=== PATIENT | female | born 1995 | race Hispanic/Latino ===

== ENCOUNTER 2018-01-13 23:29 | Emergency (ER) | payer MEDICAID ==
[2018-01-13 23:51] LABS: APPEARANCE,URINE Clear (CLEAR); BILIRUBIN,URINE Negative (NEGATIVE); COLOR,URINE Yellow (YELLOW); GLUCOSE, URINE (UA) Negative (NEGATIVE); KETONES,URINE Negative (NEGATIVE); LEUKOCYTE ESTERASE ,URINE Trace (NEGATIVE); NITRATE,URINE Negative (NEGATIVE); OCCULT BLOOD,URINE Large (NEGATIVE); PROTEIN,URINE Negative (NEGATIVE); UROBILINOGEN,URINE 0.2 mg/dL (0.2-1.0)
[2018-01-13 23:58] LABS: BACTERIA,URINE Rare /HPF (None Seen)
[2018-01-13 23:59] LABS: MUCUS,URINE Few LPF (None Seen); SQUAMOUS EPITHELIAL CELL,UR Few /HPF (0-2)
[2018-01-14] MEDS ORDERED: ONDANSETRON HCL 4 MG/2 ML VIAL ONE (00:11)
[2018-01-14] MEDS ORDERED: IBUPROFEN 200 MG TAB ONE (00:12)
[2018-01-14] MEDS ORDERED: IBUPROFEN 400 MG TABLET ONE (00:12)
[2018-01-14 00:16] LABS: BASOPHILS % (AUTO) 0.5 % (0.0-5.0); EOSINOPHILS % (AUTO) 0.1 % (0.0-8.0); HEMATOCRIT 37.7 % (36-48); LYMPHOCYTES % (AUTO) 7.3 % (21.0-51.0); MEAN CORPUSCULAR HEMOGLOBIN 32.2 pg (27.0-33.0); MEAN CORPUSCULAR HGB CONC 34.1 g/dL (32.0-36.0); MEAN CORPUSCULAR VOLUME 94.2 fL (79-99); NEUTROPHILS % (AUTO) 89.1 % (40.0-77.0); PLATELET COUNT (AUTO) 264 K/uL (130-400); RED CELL DISTRIBUTION WIDTH 13.9 % (11.0-15.5); WHITE BLOOD COUNT (AUTO) 13.5 K/uL (4.8-10.8)
[2018-01-14 00:19] LABS: CARBON DIOXIDE 22 mmol/L (21-32); CHLORIDE 100 mmol/L (101-111); CREATININE 0.9 mg/dL (0.5-1.5); GLOMERULAR FILTR. RATE CALC 83 mL/min (>60); GLUCOSE,RANDOM 118 mg/dL (70-105); POTASSIUM 3.7 mmol/L (3.5-5.1); SODIUM SERUM 134 mmol/L (136-145); UREA NITROGEN, BLOOD 16 mg/dL (7-18)
[2018-01-14] MEDS ORDERED: SODIUM CHLORIDE 0.9% 1000ML 2,000 ML IV ONE (00:19)
[2018-01-14 00:30] LABS: ALANINE AMINOTRANSFERASE 30 U/L (12-78); ALBUMIN 3.4 g/dL (3.5-5.0); ASPARTATE AMINOTRANSFERASE 25 U/L (10-37); BILIRUBIN,TOTAL 0.2 mg/dL (0.2-1.0); CREATINE KINASE, TOTAL 86 U/L (21-232); MYOGLOBIN 23 ng/mL (10-92); TOTAL PROTEIN, SERUM 8.4 g/dL (6.0-8.3); TROPONIN I < 0.04 ng/mL (0.00-0.06)
[2018-01-14 00:34] LABS: PARTIAL THROMBOPLASTIN TIME 26.9 SEC (26.3-35.5); PROTHROMBIN TIME 10.5 SEC (9.6-11.6)
[2018-01-14] MEDS ORDERED: CEFTRIAXONE SODIUM 2 GM VIAL ONE (00:41)
[2018-01-14] MEDS ORDERED: SODIUM CHLORIDE 0.9% 100 ML IV ONE (00:41)
[2018-01-14] MEDS ORDERED: IBUPROFEN 600 MG TABLET ONE (00:43)
[2018-01-14] MEDS ORDERED: ONDANSETRON ODT 4 MG TAB ONE (01:38)
== END 2018-01-14 02:05 | disposition home or self-care (01) ==
LOC: EDH 23:29
DX: K52.9 Noninfective gastroenteritis and colitis, unspecified (principal); E86.0 Dehydration; Z98.890 Other specified postprocedural states
CPT/HCPCS: 36415 ×2; 71045; 74176; 80053; 81001; 82550; 83605; 83874; 84484; 85025; 85610; 85730; 87040 ×2; 87088; 93005; 96361; 96374; 96375; 99285; J0696; J2405; J7030

== ENCOUNTER 2018-07-10 08:33 | Inpatient (IN) | payer MEDICAID ==
[~2018-07-10] VITALS: Ht 142.2 cm; Wt 87.5 kg
[2018-07-10] MEDS ORDERED: ONDANSETRON HCL 4 MG/2 ML VIAL ONE (08:47)
[2018-07-10 09:18] LABS: BASOPHILS % (AUTO) 0.5 % (0.0-5.0); EOSINOPHILS % (AUTO) 0.4 % (0.0-8.0); HEMATOCRIT 39.3 % (36-48); LYMPHOCYTES % (AUTO) 6.6 % (21.0-51.0); MEAN CORPUSCULAR HEMOGLOBIN 31.4 pg (27.0-33.0); MEAN CORPUSCULAR HGB CONC 33.9 g/dL (32.0-36.0); MEAN CORPUSCULAR VOLUME 92.6 fL (79-99); NEUTROPHILS % (AUTO) 89.5 % (40.0-77.0); PLATELET COUNT (AUTO) 228 K/uL (130-400); RED BLOOD CELL COUNT(AUTO) 4.24 MIL/uL (4.00-5.50); WHITE BLOOD COUNT (AUTO) 6.9 K/uL (4.8-10.8)
[2018-07-10 09:19] LABS: APPEARANCE,URINE Clear (CLEAR); BILIRUBIN,URINE Negative (NEGATIVE); COLOR,URINE Yellow (YELLOW); GLUCOSE, URINE (UA) Negative (NEGATIVE); HCG,QUAL RESULT NEGATIVE (NEGATIVE); KETONES,URINE Negative (NEGATIVE); LEUKOCYTE ESTERASE ,URINE Negative (NEGATIVE); NITRATE,URINE Negative (NEGATIVE); OCCULT BLOOD,URINE Negative (NEGATIVE); PH,URINE 5.5 (5.0-8.0); PROTEIN,URINE Negative (NEGATIVE); UROBILINOGEN,URINE 0.2 mg/dL (0.2-1.0)
[2018-07-10] MEDS ORDERED: KETOROLAC TROMETHAMINE 30MG/ML ONE ×2 (09:22→19:14)
[2018-07-10 09:30] LABS: POTASSIUM 4.1 mmol/L (3.5-5.1)
[2018-07-10 09:33] LABS: ALBUMIN 3.3 g/dL (3.5-5.0); BILIRUBIN,TOTAL 0.2 mg/dL (0.2-1.0)
[2018-07-10] MEDS ORDERED: IOHEXOL 350 MG/ML 100ML INFUS..BTL IV ONE (09:33)
[2018-07-10] MEDS ORDERED: LEVOFLOXACIN 750 MG/D5W 150 ML 150 ML ONE (11:07)
[2018-07-10 12:45] VITALS: BP 122/69
[2018-07-10] MEDS ORDERED: ONDANSETRON HCL 4 MG/2 ML VIAL IVP PRN (12:45)
[2018-07-10 16:00] VITALS: BP 118/56
[2018-07-10 19:55] VITALS: BP 145/79
[2018-07-10] MEDS: KETOROLAC TROMETHAMINE 30MG/ML IV SCH (20:38)
[2018-07-10] MEDS: NAPROXEN 250 MG TAB PO SCH (20:56)
[2018-07-10 22:23] LABS: RAPID GROUP A STREP NEGATIVE (NEGATIVE)
[2018-07-10] MEDS: SODIUM CHLORIDE 0.9% 1000ML 1,000 ML IV SCH (22:40)
[2018-07-10 23:20] VITALS: BP 126/51
[2018-07-11] MEDS: KETOROLAC TROMETHAMINE 30MG/ML IV PRN ×2 (03:07→13:39)
[2018-07-11 05:01] LABS: HEMATOCRIT 35.9 % (36-48); MEAN CORPUSCULAR HEMOGLOBIN 31.5 pg (27.0-33.0); MEAN CORPUSCULAR HGB CONC 34.2 g/dL (32.0-36.0); MEAN CORPUSCULAR VOLUME 91.9 fL (79-99); NUCLEATED RED BLOOD CELLS 0.1 % (0.0-0.19); PLATELET COUNT (AUTO) 198 K/uL (130-400); RED CELL DISTRIBUTION WIDTH 14.4 % (11.0-15.5); WHITE BLOOD COUNT (AUTO) 4.1 K/uL (4.8-10.8)
[2018-07-11 05:18] LABS: POTASSIUM 3.7 mmol/L (3.5-5.1)
[2018-07-11 05:19] LABS: CREATININE 0.8 mg/dL (0.5-1.5)
[2018-07-11 08:00] VITALS: BP 126/60
[2018-07-11] MEDS: IPRATROPIUM/ALBUTEROL SULFATE 3 ML SOLUTION IH SCH ×4 (08:00→23:51)
--- NOTE | 2018-07-11 08:04 | NUR ---
patient w/ dry cough, no nebs. notified WAIST PLEATER order entered. will check v/s.
[2018-07-11] MEDS ORDERED: PANTOPRAZOLE 40 MG/VIAL IVP SCH (09:00)
[2018-07-11] MEDS ORDERED: LACTULOSE 20 GM/30 ML UDCUP PO PRN (09:15)
[2018-07-11] MEDS ORDERED: MORPHINE SULFATE 2 MG/ML 1ML SYG ONE (09:26)
[2018-07-11] MEDS ORDERED: MORPHINE SULFATE 2 MG/ML 1ML SYG IVP PRN (09:30)
--- NOTE | 2018-07-11 09:30 | NUR ---
DYSPHAGIA EVAL COMPLETED. -S/S OF ASPIRATION. RECOMMEND CONTINUED CLEAR LIQUIDS DIET. PATIENT INFORMATION" Pt IS A 22 YEAR OLD FEMALE REFERRED FOR A BEDSIDE DYSPHAGIA EVALUATION SECONDARY TO Pt'S FAMILY STATING THAT Pt HAS TROUBLE SWALLOWING. Pt'S PARENTS AT BEDSIDE SERVED PRIMARY INFORMANTS FOR MEDICAL AND SOCIAL HISTORY. THEY STATE Pt IS NOT ABLE TO SWALLOW ANYTHING AT THIS TIME SECONDARY TO ABDOMINAL PAIN. Pt HAS NOT BEEN EATING WELL SINCE WEDNESDAY. Pt CURRENTLY ADMITTED SECONDARY TO RIGHT LOWER LOBE PNEUMONIA, ABDOMINAL PAIN, COLITIS, AND PHARYNGITIS. Pt SCREAMING IN PAIN AT THE TIME OF THE EVALUATION AND REFUSING P.O. Pt PARTICIPATED IN LIMITED TRIALS OF THIN LIQUIDS ONLY SECONDARY TO COMPLAINS OF SEVERE PAIN IN ABDOMEN. NURSE ANIKA NOTIFIED AND ABLE TO PROVIDE PAIN MEDICATION. EVALUATION: PT WITH NO OVERT S/S OF ASPIRATION DURING THIN LIQUID TRIALS. Pt DID NOT PRESENT WITH COUGHING, THROAT CLEARING OR WET VOCAL QUALITY. Pt WITH ADEQUATE LABIAL SEAL AND GOOD INTAKE FROM CUP. NO SOLIDS PRESENTED SECONDARY TO SEVERE PAIN AND P.O. REFUSAL AT THIS TIME. RECOMMENDATIONS: 1. CONTINUE CLEAT LIQUID DIET. 2. RE-EVALUATION IF WARRANTED WHEN Pt'S PAIN IS CONTROLLED. G-CODES SWALLOWING: [id number] Addendum: 07/11/18 at 1312 by SHANA FINNEY, [facility] Amended: Links added.
[2018-07-11] MEDS: NAPROXEN 250 MG TAB PO SCH ×2 (09:33→20:53)
[2018-07-11] MEDS: SODIUM CHLORIDE 0.9% 1000ML 1,000 ML IV SCH ×3 (09:34→20:53)
[2018-07-11] MEDS: LEVOFLOXACIN 750 MG/D5W 150 ML 150 ML IV SCH (09:34)
[2018-07-11] MEDS ORDERED: LACTULOSE 20 GM/30 ML UDCUP ONE (09:38)
[2018-07-11 11:00] VITALS: BP 130/70
--- NOTE | 2018-07-11 12:05 | NUR ---
Pt's mother at nurse's station, c/o her daughter's continued abd pain, upset that abd us had not yet been done despite having been ordered at 0800 today. Mother stated she did not want pt to receive more pain medication, wants her to have the AB US. She also stated, "So are they just going to let her ?" and "What are they going to wait until her intestines pop?" Attempted to call ultrasound department, no answer. Spoke with technical account representative who informed nurse that US tech was out to lunch. Notified NEMO Navarro NP of family c/o. He entered orders for ativan and changed US orders to stat. Notified nail technician teacher of new stat status.
[2018-07-11] MEDS ORDERED: LORAZEPAM 2 MG/ML 1 ML VIAL IVP SCH (12:30)
--- NOTE | 2018-07-11 12:30 | NUR ---
Entered room to notify pt/family of new orders, pt's mother had phone camera on, was videotaping charge nurse. Explained to her that [employer] had been notified and was on his way. Notified MS Director Gigi of video taping in progress. He visited room to speak with family.
--- NOTE | 2018-07-11 12:35 | NUR ---
PATIENT ANXIOUS, SCREAMING, RESTLESS, BILINGUAL ADMINISTRATIVE ASSISTANT PAGED ORDERS ENTERED BY CHARGE NURSE; US STAT OF THE ABD, AND ATIVAN. OFFERED PAIN MEDICATION OR FOR NAUSEA AND PARENTS OF PATIENT REFUSED THEY STATE IT IS NOT THE PAIN OR THE NAUSEA THEY'RE WORRIED BUT IF THERE IS ANY PERFORATION IN THE ABD. US TECHS PAGED ABOUT THE ORDER CHARGE NURSE SPOKE WITH ROBER STATE WILL LET THEM KNOW. PATIENT SCREAMING AND YELLING. FATHERS AND MOTHER STATES THEY WILL VIDEO TAPE AND CALL [facility] BECAUSE THIS IS NO WAY TO TREAT A PATIENT. WILL ASSESS FOR PAIN AND NAUSEA MANAGEMENT IN 15-20MIN. CHARGE NURSE AND DIRECTOR AWARE OF THE SITUATION.
[2018-07-11] MEDS: NYSTATIN 100000 UNIT/ML 5ML UDCUP PO SCH ×3 (13:00→20:54)
--- NOTE | 2018-07-11 14:28 | NUR ---
STOOL O/B POSITIVE, SPOKE W/ ELIZABETH FROM DR. RICKS OFFICE STATES WILL CONVEY THE MESSAGE.
--- NOTE | 2018-07-11 14:59 | NUR ---
PER PATIENT'S MOTHER SHE STATES WHEN PATIENT WAS IN THE RESTROOM SHE SEEMED LIKE SHE WAS PASSING OUT FROM THE PAIN, BUT NEVER LOST CONSCIOUS, CEASAR MULLEN HAS ORDERED 2DECHO WHICH IS STILL PENDING AT THIS TIME.
[2018-07-11 16:00] VITALS: BP 120/68
[2018-07-11] MEDS: METRONIDAZOLE 500MG/100ML BAG 100 ML IV SCH ×2 (18:02→20:53)
[2018-07-11] MEDS: KETOROLAC TROMETHAMINE 30MG/ML IV SCH (19:00)
[2018-07-11 19:26] VITALS: BP 137/69
[2018-07-11 23:07] VITALS: BP 116/74
[2018-07-12] MEDS: MORPHINE SULFATE 2 MG/ML 1ML SYG IVP PRN ×2 (01:11→21:26)
[2018-07-12 03:57] VITALS: BP 107/48
[2018-07-12 04:58] LABS: BASOPHILS % (AUTO) 1.2 % (0.0-5.0); EOSINOPHILS % (AUTO) 0.1 % (0.0-8.0); LYMPHOCYTES % (AUTO) 25.9 % (21.0-51.0); MEAN CORPUSCULAR HEMOGLOBIN 30.7 pg (27.0-33.0); MEAN CORPUSCULAR HGB CONC 33.6 g/dL (32.0-36.0); MEAN CORPUSCULAR VOLUME 91.2 fL (79-99); MONOCYTES % (AUTO) 9.6 % (3.0-13.0); NEUTROPHILS % (AUTO) 63.2 % (40.0-77.0); PLATELET COUNT (AUTO) 207 K/uL (130-400); RED BLOOD CELL COUNT(AUTO) 3.72 MIL/uL (4.00-5.50); RED CELL DISTRIBUTION WIDTH 14.3 % (11.0-15.5); WHITE BLOOD COUNT (AUTO) 2.8 K/uL (4.8-10.8)
[2018-07-12 05:28] LABS: CREATININE 0.7 mg/dL (0.5-1.5); POTASSIUM 3.4 mmol/L (3.5-5.1)
[2018-07-12 05:33] LABS: BAND NEUTROPHILS % (MANUAL) 2 % (0-2); LYMPHOCYTES % (MANUAL) 28 % (22-44); MAN.DIFF COMMENT-IMPRESSION MANUAL DIFFERENTIAL; MONOCYTES % (MANUAL) 6 % (2-9); PLATELET MORPHOLOGY COMMENT ADEQUATE; SEGMENTED NEUTROPHILS % 64 % (40-70)
[2018-07-12] MEDS: SODIUM CHLORIDE 0.9% 1000ML 1,000 ML IV SCH ×3 (06:05→21:24)
[2018-07-12] MEDS: METRONIDAZOLE 500MG/100ML BAG 100 ML IV SCH (06:05)
[2018-07-12] MEDS: IPRATROPIUM/ALBUTEROL SULFATE 3 ML SOLUTION IH SCH ×3 (06:16→18:26)
[2018-07-12 08:00] VITALS: BP 117/55
[2018-07-12] MEDS: PANTOPRAZOLE SODIUM 40 MG TABLET.DR PO SCH (09:53)
[2018-07-12] MEDS: NAPROXEN 250 MG TAB PO SCH ×2 (09:53→21:24)
[2018-07-12] MEDS: LEVOFLOXACIN 750 MG/D5W 150 ML 150 ML IV SCH (09:54)
[2018-07-12] MEDS: NYSTATIN 100000 UNIT/ML 5ML UDCUP PO SCH ×4 (09:54→21:24)
[2018-07-12 11:00] VITALS: BP 120/58
[2018-07-12] MEDS ORDERED: METRONIDAZOLE 500 MG TABLET PO SCH (11:30)
[2018-07-12 16:00] VITALS: BP 117/63
--- NOTE | 2018-07-12 16:00 | NUR ---
IA/ RICK NOTE SEEN W/OM AT BEDSIDE, UP IN CHAIR, EATING, ALERT, HAS HX OF MR; NO DME, MOM PROIVDER SERVICES, NO NEEDS ANTICIPATED, SAFE TO GO HOME Addendum: 07/13/18 at 1600 by SHAWNA REGALADO RN CM Amended: Links added.
[2018-07-12] MEDS: KETOROLAC TROMETHAMINE 30MG/ML IV SCH (19:00)
[2018-07-12 20:00] VITALS: BP 125/66
[2018-07-12] MEDS: METRONIDAZOLE 500 MG TABLET PO SCH (21:24)
[2018-07-12 23:30] VITALS: BP 121/67
[2018-07-13 04:11] VITALS: BP 103/49
[2018-07-13 06:04] LABS: ALBUMIN 2.4 g/dL (3.5-5.0); BILIRUBIN,TOTAL 0.2 mg/dL (0.2-1.0); CREATININE 0.8 mg/dL (0.5-1.5); POTASSIUM 3.6 mmol/L (3.5-5.1); TOTAL PROTEIN, SERUM 6.2 g/dL (6.0-8.3)
[2018-07-13] MEDS: IPRATROPIUM/ALBUTEROL SULFATE 3 ML SOLUTION IH SCH ×4 (06:13→23:07)
[2018-07-13 06:14] LABS: BASOPHILS % (AUTO) 0.9 % (0.0-5.0); EOSINOPHILS % (AUTO) 1.1 % (0.0-8.0); HEMATOCRIT 35.2 % (36-48); LYMPHOCYTES % (AUTO) 29.3 % (21.0-51.0); MEAN CORPUSCULAR HEMOGLOBIN 30.8 pg (27.0-33.0); MEAN CORPUSCULAR HGB CONC 32.8 g/dL (32.0-36.0); MEAN CORPUSCULAR VOLUME 93.7 fL (79-99); MONOCYTES % (AUTO) 10.6 % (3.0-13.0); NEUTROPHILS % (AUTO) 58.1 % (40.0-77.0); NUCLEATED RED BLOOD CELLS 0.4 % (0.0-0.19); PLATELET COUNT (AUTO) 202 K/uL (130-400); RED BLOOD CELL COUNT(AUTO) 3.76 MIL/uL (4.00-5.50); RED CELL DISTRIBUTION WIDTH 14.7 % (11.0-15.5); WHITE BLOOD COUNT (AUTO) 3.5 K/uL (4.8-10.8)
[2018-07-13] MEDS: METRONIDAZOLE 500 MG TABLET PO SCH ×3 (06:21→21:23)
[2018-07-13] MEDS: SODIUM CHLORIDE 0.9% 1000ML 1,000 ML IV SCH ×2 (06:21→20:45)
[2018-07-13] MEDS: PANTOPRAZOLE SODIUM 40 MG TABLET.DR PO SCH (06:21)
[2018-07-13 08:00] VITALS: BP 114/65
[2018-07-13] MEDS ORDERED: METR500T PO (09:41)
[2018-07-13] MEDS ORDERED: LEVO750T46 PO (09:41)
[2018-07-13] MEDS ORDERED: NAPROXEN 500 MG TABLET ONE (10:22)
[2018-07-13] MEDS: LEVOFLOXACIN 750 MG TABLET PO SCH (10:27)
[2018-07-13] MEDS: NYSTATIN 100000 UNIT/ML 5ML UDCUP PO SCH ×3 (10:28→21:23)
[2018-07-13] MEDS: NAPROXEN 250 MG TAB PO SCH ×2 (11:48→21:23)
[2018-07-13 12:00] VITALS: BP 109/59
[2018-07-13 16:00] VITALS: BP 125/68
[2018-07-13] MEDS: KETOROLAC TROMETHAMINE 30MG/ML IV SCH (19:00)
[2018-07-13 20:50] VITALS: BP 145/60
[2018-07-13 23:57] VITALS: BP 123/59
[2018-07-14 04:00] VITALS: BP 122/78
[2018-07-14] MEDS: SODIUM CHLORIDE 0.9% 1000ML 1,000 ML IV SCH (04:45)
[2018-07-14] MEDS: METRONIDAZOLE 500 MG TABLET PO SCH (06:38)
[2018-07-14] MEDS: PANTOPRAZOLE SODIUM 40 MG TABLET.DR PO SCH (06:38)
[2018-07-14 08:00] VITALS: BP 122/84
--- NOTE | 2018-07-14 08:00 | NUR ---
AM ROUNDS. SITTING IN CHAIR PLAYING GAMES ON TABLET,LOOKS HAPPY. PARENTS AT BEDSIDE. PT. STATES SLEPT WELL. DC ORDERS IN PLACE AND WILL DC TODAY.
[2018-07-14] MEDS: NAPROXEN 250 MG TAB PO SCH (09:34)
[2018-07-14] MEDS: LEVOFLOXACIN 750 MG TABLET PO SCH (09:34)
[2018-07-14] MEDS: NYSTATIN 100000 UNIT/ML 5ML UDCUP PO SCH (09:34)
--- NOTE | 2018-07-14 10:00 | NUR ---
NO FURTHER C/O OF NAUSEA OR VOMITING. MOM STATES TOLERATED BKFT.WELL.
[2018-07-14] MEDS: IPRATROPIUM/ALBUTEROL SULFATE 3 ML SOLUTION IH SCH (11:31)
--- NOTE | 2018-07-14 12:15 | NUR ---
DISCHARGED USING TEACH BACK,INST GIVEN TO PARENT ALONG WITH RX AND OFFICE APPT. VERBALIZED UNDERSTANDING OF ALL INST. SALINE LOCK REMOVED.
== END 2018-07-14 11:50 | disposition home or self-care (01) | DRG 139 ==
LOC: EDH 08:33 → OBSVTOIN 08:34 → EDHIP 08:34 → 3BH 12:26
PROVIDERS: ADMIT Family Medicine; ATTEND Family Medicine
DX: J18.1 Lobar pneumonia, unspecified organism (principal); Z68.41 Body mass index [BMI] 40.0-44.9, adult; Q90.9 Down syndrome, unspecified; J02.9 Acute pharyngitis, unspecified; K52.9 Noninfective gastroenteritis and colitis, unspecified; Z82.5 Family history of asthma and other chronic lower respiratory diseases
CPT/HCPCS: 36415; 71045; 74177; 76700; 80048; 80053; 81003; 81025; 82270; 83630; 85025; 85027; 87040; 87046; 87177; 87338; 87804; 87880; 92610; 93306; 94640; 94664; C9113; G0378; J1885; J1956; J2405; J3490; J7030; Q9967

== ENCOUNTER 2018-07-19 23:22 | Emergency (ER) | payer MEDICAID ==
[~2018-07-19 23:22] MED LIST: LEVO750T46 PO; METR500T PO; SODIUM CHLORIDE 0.9% 1000ML 1,000 ML IV ONE
[2018-07-19 23:58] LABS: EOSINOPHILS % (AUTO) 0.3 % (0.0-8.0); HEMATOCRIT 40.5 % (36-48); LYMPHOCYTES % (AUTO) 26.2 % (21.0-51.0); MEAN CORPUSCULAR HEMOGLOBIN 30.5 pg (27.0-33.0); MEAN CORPUSCULAR HGB CONC 33.3 g/dL (32.0-36.0); MEAN CORPUSCULAR VOLUME 91.7 fL (79-99); MONOCYTES % (AUTO) 7.9 % (3.0-13.0); NEUTROPHILS % (AUTO) 64.6 % (40.0-77.0); PLATELET COUNT (AUTO) 345 K/uL (130-400); RED BLOOD CELL COUNT(AUTO) 4.42 MIL/uL (4.00-5.50); RED CELL DISTRIBUTION WIDTH 14.9 % (11.0-15.5); WHITE BLOOD COUNT (AUTO) 9.2 K/uL (4.8-10.8)
[2018-07-20 00:07] LABS: CREATININE 0.8 mg/dL (0.5-1.5); POTASSIUM 3.9 mmol/L (3.5-5.1)
[2018-07-20 00:12] LABS: ALBUMIN 3.4 g/dL (3.5-5.0); BILIRUBIN,TOTAL 0.2 mg/dL (0.2-1.0)
[2018-07-20 00:17] LABS: APPEARANCE,URINE Clear (CLEAR); BILIRUBIN,URINE Negative (NEGATIVE); COLOR,URINE Yellow (YELLOW); GLUCOSE, URINE (UA) Negative (NEGATIVE); KETONES,URINE Negative (NEGATIVE); LEUKOCYTE ESTERASE ,URINE Small (NEGATIVE); NITRATE,URINE Negative (NEGATIVE); OCCULT BLOOD,URINE Negative (NEGATIVE); PH,URINE 6.5 (5.0-8.0); PROTEIN,URINE Negative (NEGATIVE)
[2018-07-20 00:20] LABS: HCG,QUAL RESULT NEGATIVE (NEGATIVE)
[2018-07-20 00:57] LABS: BACTERIA,URINE None Seen /HPF (None Seen); RBC,URINE None Seen /HPF (0-1); SQUAMOUS EPITHELIAL CELL,UR Few /HPF (0-2); WBC,URINE 0-1 /HPF (0-1)
== END 2018-07-20 01:46 | disposition home or self-care (01) ==
LOC: EDH 23:22
DX: R11.2 Nausea with vomiting, unspecified (principal); Q90.9 Down syndrome, unspecified; Z90.89 Acquired absence of other organs
CPT/HCPCS: 36415; 71045; 80053; 81001; 81025; 83690; 85025; 96361; 96374; 99285; J7030

== ENCOUNTER 2018-08-23 08:20 | Day surgery (SDC) | payer MEDICAID ==
[~2018-08-23] VITALS: Ht 142.2 cm; Wt 83.0 kg
[2018-08-23 09:45] VITALS: BP 133/77
[2018-08-23] MEDS ORDERED: vit c (09:54)
[2018-08-23] MEDS ORDERED: allergy (09:54)
[2018-08-23] MEDS ORDERED: vit e (09:54)
[2018-08-23 11:45] VITALS: BP 108/68
[2018-08-23 11:50] VITALS: BP 106/73
[2018-08-23 12:00] VITALS: BP 112/53
== END 2018-08-23 12:15 | disposition home or self-care (01) ==
LOC: DAH 08:20 → ENDO 08:20
PROVIDERS: ATTEND Internal Medicine
DX: K52.9 Noninfective gastroenteritis and colitis, unspecified (principal); R10.9 Unspecified abdominal pain; K64.0 First degree hemorrhoids; E66.9 Obesity, unspecified; Z98.890 Other specified postprocedural states
CPT/HCPCS: 36415; 45380; 84703; 88305; A4606; J7030